=== PATIENT | male | born 1990 | race Caucasian/White ===

== ENCOUNTER 2017-10-22 01:23 | Emergency (ER) | payer SELFPAY ==
[2017-10-22] MEDS ORDERED: Ketorolac INJ* 30 MG/ML 1 ML VIAL IV PUSH ONE (02:02)
[2017-10-22] MEDS ORDERED: NS 0.9% 1000 ML* 1,000 ML IV ONE (02:02)
[2017-10-22 02:21] LABS: ABS Basophils 0.1 10^3/ul (0-0.2); ABS Eosinophils 0.1 10^3/ul (0-0.6); ABS Lymphocytes 2.4 10^3/ul (1.0-4.8); ABS Monocytes 0.6 10^3/ul (0-0.8); ABS Neutrophils 3.2 10^3/ul (1.5-7.7); ABS Nucleated RBC 0 10^3/ul; Eosinophil % 2.1 % (0-6); Hematocrit 39 % (42-52); Hemoglobin 13.5 g/dl (14.0-18.0); Lymphocyte % 37.6 % (25-47); Mean Corpuscular HGB Conc 34 g/dl (31-36); Mean Corpuscular Hemoglobin 31 pg (27-31); Mean Corpuscular Volume 91 fL (80-94); Mean Platelet Volume 7.4 um3 (7.4-10.4); Nucleated Red Blood Cells % 0.1; Platelet Count 263 10^3/ul (150-450); Red Blood Count 4.33 10^6/ul (4.0-5.4); Red Cell Distribution Width 13 % (10.5-15); White Blood Count 6.3 10^3/ul (3.5-10.8)
[2017-10-22 02:40] LABS: EGFR Non-African American 93.6 (>60)
[2017-10-22] MEDS ORDERED: HYDROmorphone INJ* 2 MG/ML CARPUJECT SYRINGE IV SLOW PU ONE (03:28)
[2017-10-22] MEDS ORDERED: Tamsulosin CAP* 0.4 MG PO ONE (03:28)
--- NOTE | 2017-10-22 04:28 | ED ---
John Mcfarland Jennifer, scribed for Luis You MD on 10/22/17 at 0202 . GI/ HPI - HPI Summary HPI Summary: The patient is a 26 year old male who presents with right flank pain that began about one hour ago. Patient reports he was getting ready to lie down in bed when the pain occurred suddenly. 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 Patient denies fever. - History of Current Complaint Chief Complaint: EDFlankPain Stated Complaint: FLANK PAIN Hx Obtained From: Patient Onset/Duration: Started Hours Ago - 1 hour, Still Present Timing: Constant Severity: Severe Current Severity: Severe Pain Intensity: 10 Location of Pain: Flank - right Associated Signs and Symptoms: Positive: Negative - Fever, Vomiting, Dysuria Aggravating Factor(s): Nothing Alleviating Factor(s): Nothing - Allergy/Home Medications Allergies/Adverse Reactions: Allergies Allergy/AdvReac Type Severity Reaction Status Date / Time No Known Allergies Allergy Verified 10/22/17 01:53 PMH/Surg Hx/FS Hx/Imm Hx Endocrine/Hematology History: Denies: Hx Diabetes, Hx Thyroid Disease Cardiovascular History: Denies: Hx Hypertension Respiratory History: Reports: Hx Asthma - IN THE PAST Denies: Hx Chronic Obstructive Pulmonary Disease (COPD) GI History: Reports: Hx Gastroesophageal Reflux Disease - IN THE PAST-HAD SURGERYIN 2003 TO REPAIR ESOPHAGUS, Other GI Disorders - Hx esophagitis Denies: Hx Ulcer History: Reports: Hx Kidney Stones - IN THE PAST-LAST EPISODE 4 YEARS AGO Comment Only: Other Problems/Disorders - HX OF RENAL STONES NO SURGERY FOR THEM Sensory History: Denies: Hx Contacts or Glasses, Hx Hearing Aid Opthamlomology History: Denies: Hx Contacts or Glasses - Surgical History Surgery Procedure, Year, and Place: 2003 ESOPHAGUS SURGERY- [facility]/FOR ESOPHAGUS ACID REFLUX Hx Anesthesia Reactions: No - Immunization History Date of Tetanus Vaccine: utd per pt Date of Influenza Vaccine: utd per pt Infectious Disease History: No Infectious Disease History: Denies: Hx Hepatitis, Hx Human Immunodeficiency Virus (HIV), Traveled Outside the in Last 30 Days - Family History Known Family History: Positive: Other - Noncontributory Negative: Respiratory Disease - Social History Alcohol Use: Occasionally Substance Use Type: Reports: None Smoking Status (MU): Never Smoked Tobacco Review of Systems Positive: Vomiting Positive: dysuria, flank pain All Other Systems Reviewed And Are Negative: Yes Physical Exam - Summary Physical Exam Summary: Appearance: Well appearing, no pain distress Skin: warm, dry, reflects adequate perfusion Head/face: normal Eyes: EOMI, JAYESH ENT: normal Neck: supple, non-tender Respiratory: CTA, breath sounds present Cardiovascular: RRR, pulses symmetrical Abdomen: non-tender, soft, no CVA tenderness Bowel Sounds: present Musculoskeletal: normal, strength/ROM intact Neuro: normal, sensory motor intact, A&Ox3 Triage Information Reviewed: Yes Vital Signs On Initial Exam: Initial Vitals Temp Pulse Resp BP Pulse Ox 97.5 F 86 16 146/104 99 10/22/17 01:25 10/22/17 01:25 10/22/17 01:25 10/22/17 01:25 10/22/17 01:25 Vital Signs Reviewed: Yes Diagnostics - Vital Signs Vital Signs Temp Pulse Resp BP Pulse Ox 10/22/17 01:25 97.5 F 86 16 146/104 99 - Laboratory Lab Results: Lab Results 10/22/17 10/22/17 Range/Units 02:12 02:12 WBC 6.3 (3.5-10.8) 10^3/ul RBC 4.33 (4.0-5.4) 10^6/ul Hgb 13.5 L (14.0-18.0) g/dl Hct 39 L (42-52) % MCV 91 (80-94) fL MCH 31 (27-31) pg MCHC 34 (31-36) g/dl RDW 13 (10.5-15) % Plt Count 263 (150-450) 10^3/ul MPV 7.4 (7.4-10.4) um3 Neut % (Auto) 50.4 (38-83) % Lymph % (Auto) 37.6 (25-47) % Ford % (Auto) 8.9 H (0-7) % Eos % (Auto) 2.1 (0-6) % Baso % (Auto) 1.0 (0-2) % Absolute Neuts (auto) 3.2 (1.5-7.7) 10^3/ul Absolute Lymphs (auto) 2.4 (1.0-4.8) 10^3/ul Absolute Monos (auto) 0.6 (0-0.8) 10^3/ul Absolute Eos (auto) 0.1 (0-0.6) 10^3/ul Absolute Basos (auto) 0.1 (0-0.2) 10^3/ul Absolute Nucleated RBC 0 10^3/ul Nucleated RBC % 0.1 Sodium 137 L (139-145) mmol/L Potassium 3.2 L (3.5-5.0) mmol/L Chloride 103 (101-111) mmol/L Carbon Dioxide 25 (22-32) mmol/L Anion Gap 9 (2-11) mmol/L BUN 17 (6-24) mg/dL Creatinine 0.97 (0.67-1.17) mg/dL Est GFR ( Amer) 120.3 (>60) Est GFR (Non-Af Amer) 93.6 (>60) BUN/Creatinine Ratio 17.5 (8-20) Glucose 181 H (70-100) mg/dL Calcium 9.1 (8.6-10.3) mg/dL Total Bilirubin 0.60 (0.2-1.0) mg/dL AST 24 (13-39) U/L ALT 19 (7-52) U/L Alkaline Phosphatase 63 (34-104) U/L Total Protein 7.0 (6.4-8.9) g/dL Albumin 4.2 (3.2-5.2) g/dL Globulin 2.8 (2-4) g/dL Albumin/Globulin Ratio 1.5 (1-3) Lipase 28 (11.0-82.0) U/L Result Diagrams: 10/22/17 02:12 10/22/17 02:12 Lab Statement: Any lab studies that have been ordered have been reviewed, and results considered in the medical decision making process. - CT CT Abd/Pel CT Interpretation: Positive (See Comments) - Mild to moderate right hydronephrosis secondary to a 2mm distal UVJ stone. Additional punctate right renal stones. Dr. You has reviewed this report. CT Interpretation Completed By: Radiologist Re-Evaluation - Re-Evaluation First Eval Change: Improved - Pain is much better tolerated and improved GIGU Course/Dx - Course Course Of Treatment: Patient has a history kidney stones. CT scan is consistent with same. Today a 2 mm stone at the distal UVJ on the right. Flomax was given after pain was controlled. He will follow-up with his primary care physician and start a calcium oxalate diet - Diagnoses Differential Diagnoses - Male: Other - UTI, kidney stone, pyelonephritis, appendicitis, lumbar strain Provider Diagnoses: Renal colic, Ureterolithiasis Discharge - Sign-Out/Discharge Documenting (check all that apply): Discharge/Admit/Transfer - Discharge Plan Condition: Improved Disposition: HOME Prescriptions: Naproxen [Naproxen 500 mg tab] 500 mg PO BID PRN #10 tablet.dr PRN Reason: Pain Tamsulosin CAP* [Flomax CAP*] 0.4 mg PO DAILY #4 cap traMADol TAB* [Ultram*] 25 mg PO Q8H PRN #10 tab MDD 3 PRN Reason: for more severe pain Patient Education Materials: Kidney Stones (ED) Forms: *Work Release Referrals: Sanjay Hamilton MD [Primary Care Provider] - Additional Instructions: Stay well hydrated. Return with fever, uncontrolled pain, worse or other concerns. Try a calcium oxalate diet. This can be accessed online. - Billing Disposition and Condition Condition: IMPROVED Disposition: HOME The documentation as recorded by the John ryder Jennifer accurately reflects the service I personally performed and the decisions made by , Luis You MD.
[2017-10-22 05:04] VITALS: BP 133/84
--- NOTE | 2017-10-22 08:02 | RAD ---
CLINICAL HISTORY: Right flank pain, history of stones COMPARISON: February 06, 2013 TECHNIQUE: Multiple contiguous axial CT scans were obtained of the abdomen and pelvis, without intravenous contrast enhancement. Coronal and sagittal multiplanar reformations are submitted for review. Oral contrast was not administered. FINDINGS: The study is limited by the lack of intravenous contrast. This limits evaluation of the solid organs and vasculature. LUNG BASES: The lung bases are clear. LIVER: The liver is normal in shape, size, contour, and attenuation. BILE DUCTS: There is no intrahepatic or extrahepatic biliary dilatation. GALLBLADDER: The gallbladder is incompletely distended and is not well evaluated. PANCREAS: The pancreas is normal, without mass or ductal dilatation. SPLEEN: Normal in size and appearance. UPPER GI TRACT: There is a small sliding hiatal hernia.. SMALL BOWEL AND MESENTERY: The small bowel is normal in contour, course, and caliber. There is no obstruction or dilatation. COLON: The colon is normal in contour, course, caliber. There is no pericolonic inflammatory change. ADRENALS: Normal bilaterally. KIDNEYS: There are punctate renal calyceal stones on the right. There is a 0.2 cm calculus of the right UVJ with mild hydroureter and pelviectasis. BLADDER: The bladder is smooth in contour. PELVIC ORGANS: The prostate gland is normal. The seminal vesicles are symmetric. AORTA: The aorta is normal. IVC: Unremarkable LYMPH NODES: There is no lymphadenopathy by size criteria. ABDOMINAL WALL: There is no evidence for abdominal wall hernia. BONES AND SOFT TISSUES: Unremarkable OTHER: None IMPRESSION: RIGHT NEPHROLITHIASIS INCLUDING A 0.2 CM RIGHT UVJ CALCULUS WITH MILD HYDRONEPHROSIS
== END 2017-10-22 05:00 | disposition home or self-care (01) ==
LOC: ED 01:23
DX: N23 Unspecified renal colic (principal); N20.2 Calculus of kidney with calculus of ureter; Z87.442 Personal history of urinary calculi; R30.0 Dysuria; R11.10 Vomiting, unspecified
CPT/HCPCS: 36415; 74176; 80053; 83690; 85025; 96374; 96375; 99283; J1170; J1885